=== PATIENT | male | born 1955 | race Caucasian/White ===

== ENCOUNTER → 2018-04-22 10:20 | Outpatient (CLI) | payer MEDICARE, SELFPAY ==
--- NOTE | 2018-04-22 10:25 | US_ITS ---
STUDY: RENAL ULTRASOUND - COMPLETE REASON FOR EXAM: Male, 62 years old. Stage III kidney disease. History of surgery inferior pole left kidney. TECHNIQUE: Ultrasound evaluation of the kidneys was performed with real-time and static dupree-scale imaging. COMPARISON: CT abdomen with runoff May 19, 2015. FINDINGS: RIGHT KIDNEY: Normal location of the right kidney, which is normal in size. The right kidney measures 12.0 x 5.6 x 6.1 cm. There is a normal cortex of the right kidney. The renal cortex measures 1.6 cm. There is no right renal mass or cyst. There are no right renal calculi. There is no right hydronephrosis. DISTAL RIGHT URETER: There is non-visualization of the distal right ureter. There is no demonstrated right ureterovesical junction calculus. There is a visualized right ureteral jet. LEFT KIDNEY: Normal location of the left kidney, which is normal in size. The left kidney measures 9.8 x 5.5 x 6.2 cm. There is a normal cortex of the left kidney. The renal cortex measures 1.6 cm. Simple cyst superior pole measuring 1.2 x 1.1 x 1.0 cm. Superior pole of the left kidney not included on the prior study. 3 mm renal calculus. There is no left hydronephrosis. DISTAL LEFT URETER: There is non-visualization of the distal left ureter. There is no demonstrated left ureterovesical junction calculus. There is a visualized left ureteral jet. I.V.C.: The IVC is patent. BLADDER: The distended urinary bladder has a volume of 208 ml. The empty urinary bladder has a volume of 20 ml. There is a normal wall thickness of the distended urinary bladder. There is no demonstrated mass within the urinary bladder. There are no demonstrated bladder calculi. US/Kidney and Bladder IMPRESSION: No hydronephrosis. Simple cyst left kidney. 3 mm nonobstructing calculus left kidney. No significant postvoid bladder residual. Electronically Signed: Sam Gan MD at 4:46 EDT , Service support ,
[2018-04-22 11:15] LABS: Bacteria 0 SEEN /hpf (None Seen); Mucous, Urine 0 SEEN /hpf (<or=2+); Red Blood Cells-Urine 0 SEEN /hpf (0-5); Squamous Epithelial Cells - UA 0 SEEN /hpf (0-5); White Blood Cells 0 SEEN /hpf (0-5)
[2018-04-22 11:39] LABS: Hematocrit 45.9 % (40-54); Hemoglobin 14.8 g/dl (13.0-16.5); Mean Corp Hgb Conc 32.2 g/gl (32-36); Mean Corpuscular Hgb 30.7 pg (27.0-32.0); Mean Corpuscular Volume 95.2 fL (80-94); Mean Platelet Vol. 10.4 fl (6.2-12.0); Platelet Count 262 K/mm3 (150-450); RBC Distribution Width SD 48.9 fl (35.1-43.9); Red Blood Count 4.82 M/mm3 (4.6-6.2); White Blood Count 7.2 K/mm3 (4.4-11.0)
[2018-04-22 11:46] LABS: Scan Indicated on CBC? Y/N NO
[2018-04-22 12:07] LABS: Albumin, Serum 3.8 g/dL (3.2-5.0); BUN 20 mg/dL (7-18); BUN/Creat Ratio 13.2 RATIO (10-20); Calcium,Total 8.8 mg/dL (8.5-10.1); Chloride 103 mmol/L (98-107); Creatinine, Serum 1.51 mg/dL (0.70-1.30); EST Glomerular Filtration Rate 50 mL/min (>60); Est Glom Filt Rate - Afr Amer 60 mL/min (>60); Glucose 91 mg/dL (74-106); Phosphorus 2.3 mg/dL (2.5-4.9); Potassium 4.3 mmol/L (3.5-5.1); Sodium Level 138 mmol/L (136-145)
[2018-04-22 12:35] LABS: Color, Urine Yellow (Yellow); Glucose, Dipstick Normal (Normal); Ketone-Dipstick Negative (Negative); Leukocyte Esterase-Dipstick Negative /ul (Negative); Nitrite-Dipstick Negative (Negative); Occult Blood-Urine Negative /ul (Negative); Protein-Dipstick Negative (Negative); Urine Bilirubin Dipstick Negative (Negative); Urine Clarity Clear (Clear); Urine Urobilinogen Normal (Normal)
[2018-04-22 14:04] LABS: Microalbumin,Random Urine 9.3 mg/L (NO RANGE EST.); Microalbumin:Creatinine Ratio 30.6 mg/g CRE (<30 mg/g CRE); Protein, Urine (Random) < 6.0 mg/dL (<11.9)
[2018-04-23 08:30] LABS: Vitamin D,25 Hydroxy 25.3 ng/mL (29.95-100.01)
[2018-04-23 08:33] LABS: PTHIN 32.1 pg/mL (18.4-80.1)
== END ==
PROVIDERS: Family Provider Family Medicine; PCP Family Medicine; Visit Provider Internal Medicine Nephrology
DX: N18.3 Chronic kidney disease, stage 3 (moderate) (principal); E55.9 Vitamin D deficiency, unspecified
CPT/HCPCS: 36415; 76770; 80069; 81001; 82043; 82306; 82570; 83970; 84156; 85027

== ENCOUNTER → 2018-09-29 10:17 | Outpatient (CLI) | payer MEDICARE, SELFPAY ==
[2018-09-29 13:10] LABS: International Normalized Ratio 2.6; Prothrombin Time (Protime)PT. 28.3 SECONDS (11.7-14.9)
== END ==
PROVIDERS: Family Provider Family Medicine; PCP Family Medicine; Referring Provider Family Medicine; Visit Provider Family Medicine
DX: I73.9 Peripheral vascular disease, unspecified (principal); Z79.01 Long term (current) use of anticoagulants
CPT/HCPCS: 85610

== ENCOUNTER → 2018-11-27 10:55 | Outpatient (CLI) | payer MEDICARE, SELFPAY ==
[2018-11-27 11:56] LABS: Hematocrit 43.5 % (40-54); Mean Corp Hgb Conc 32.2 g/gl (32-36); Mean Corpuscular Hgb 31.3 pg (27.0-32.0); Mean Corpuscular Volume 97.3 fL (80-94); Mean Platelet Vol. 11.3 fl (6.2-12.0); Platelet Count 268 K/mm3 (150-450); RBC Distribution Width CV 13.7 % (11.6-14.6); RBC Distribution Width SD 47.3 fl (35.1-43.9); Red Blood Count 4.47 M/mm3 (4.6-6.2); White Blood Count 7.9 K/mm3 (4.4-11.0)
[2018-11-27 11:58] LABS: Color, Urine Straw (Yellow); Glucose, Dipstick Normal (Normal); Ketone-Dipstick Negative (Negative); Leukocyte Esterase-Dipstick Negative /ul (Negative); Nitrite-Dipstick Negative (Negative); Occult Blood-Urine Negative /ul (Negative); Protein-Dipstick Negative (Negative); Specific Gravity, Urine 1.005 (1.002-1.030); Urine Bilirubin Dipstick Negative (Negative); Urine Clarity Clear (Clear); Urine Urobilinogen Normal (Normal)
[2018-11-27 12:12] LABS: Scan Indicated on CBC? Y/N NO
[2018-11-27 12:24] LABS: Microalbumin,Random Urine 11.6 mg/L (NO RANGE EST.); Microalbumin:Creatinine Ratio 31.3 mg/g CRE (<30 mg/g CRE); Protein, Urine (Random) < 6.0 mg/dL (<11.9)
[2018-11-27 12:35] LABS: Vitamin D,25 Hydroxy 22.2 ng/mL (29.95-100.01)
[2018-11-27 12:39] LABS: Albumin, Serum 3.8 g/dL (3.2-5.0); BUN 13 mg/dL (7-18); BUN/Creat Ratio 8.9 RATIO (10-20); Calcium,Total 8.9 mg/dL (8.5-10.1); Chloride 105 mmol/L (98-107); Creatinine, Serum 1.46 mg/dL (0.70-1.30); EST Glomerular Filtration Rate 52 mL/min (>60); Est Glom Filt Rate - Afr Amer 63 mL/min (>60); Glucose 83 mg/dL (74-106); Phosphorus 2.2 mg/dL (2.5-4.9); Potassium 4.3 mmol/L (3.5-5.1); Sodium Level 140 mmol/L (136-145)
[2018-11-27 12:55] LABS: PTHIN 53.5 pg/mL (18.4-80.1)
== END ==
PROVIDERS: Family Provider Family Medicine; PCP Family Medicine; Referring Provider Internal Medicine Nephrology; Visit Provider Internal Medicine Nephrology
DX: N18.3 Chronic kidney disease, stage 3 (moderate) (principal); E55.9 Vitamin D deficiency, unspecified
CPT/HCPCS: 36415; 80069; 81002; 82043; 82306; 82570; 83970; 84156; 85027

== ENCOUNTER → 2019-07-10 09:44 | Outpatient (CLI) | payer MEDICARE, SELFPAY ==
[2017-04-29 12:08] VITALS: BMI 32.3
[2019-07-10 10:19] LABS: International Normalized Ratio 2.7; Prothrombin Time (Protime)PT. 28.8 SECONDS (11.7-14.9)
== END ==
PROVIDERS: Family Provider Family Medicine; PCP Family Medicine; Referring Provider Family Medicine; Visit Provider Family Medicine
DX: Z79.01 Long term (current) use of anticoagulants (principal); Z86.718 Personal history of other venous thrombosis and embolism
CPT/HCPCS: 85610

== ENCOUNTER → 2020-05-04 | Outpatient (CLI) | payer MEDICARE, SELFPAY ==
[2017-04-29 12:08] VITALS: BMI 32.3
[2020-05-04 14:35] LABS: Prothrombin Time (Protime)PT. 30.8 SECONDS (11.7-14.9)
== END | disposition home or self-care (01) ==
LOC: LABSPEC 13:49
PROVIDERS: PCP Family Medicine; Referring Provider Family Medicine; Visit Provider Family Medicine
DX: I73.9 Peripheral vascular disease, unspecified (principal); Z86.718 Personal history of other venous thrombosis and embolism
CPT/HCPCS: 85610

== ENCOUNTER → 2020-07-13 | Outpatient (CLI) | payer MEDICARE, SELFPAY ==
[2017-04-29 12:08] VITALS: BMI 32.3
[2020-07-13 11:38] LABS: International Normalized Ratio 2.5; Prothrombin Time (Protime)PT. 26.7 SECONDS (11.7-14.9)
== END | disposition home or self-care (01) ==
PROVIDERS: PCP Family Medicine; Referring Provider Family Medicine; Visit Provider Family Medicine
DX: I73.9 Peripheral vascular disease, unspecified (principal); Z86.718 Personal history of other venous thrombosis and embolism
CPT/HCPCS: 85610

== ENCOUNTER → 2020-09-07 | Outpatient (CLI) | payer MEDICARE, SELFPAY ==
[2017-04-29 12:08] VITALS: BMI 32.3
[2020-09-07 11:07] LABS: International Normalized Ratio 2.1; Prothrombin Time (Protime)PT. 22.9 SECONDS (11.7-14.9)
== END | disposition home or self-care (01) ==
LOC: LABSPEC 10:52
PROVIDERS: PCP Family Medicine; Referring Provider Family Medicine; Visit Provider Family Medicine
DX: I73.9 Peripheral vascular disease, unspecified (principal); Z86.718 Personal history of other venous thrombosis and embolism
CPT/HCPCS: 85610

== ENCOUNTER → 2020-10-21 | Outpatient (CLI) | payer MEDICARE, SELFPAY ==
[2017-04-29 12:08] VITALS: BMI 32.3
[2020-10-21 10:10] LABS: International Normalized Ratio 2.6; Prothrombin Time (Protime)PT. 27.2 SECONDS (11.7-14.9)
== END | disposition home or self-care (01) ==
LOC: LABSPEC 09:37
PROVIDERS: PCP Family Medicine; Visit Provider Family Medicine
DX: I73.9 Peripheral vascular disease, unspecified (principal); Z86.718 Personal history of other venous thrombosis and embolism
CPT/HCPCS: 85610

== ENCOUNTER → 2020-12-16 | Outpatient (CLI) | payer MEDICARE, SELFPAY ==
[2017-04-29 12:08] VITALS: BMI 32.3
[2020-12-16 16:09] LABS: International Normalized Ratio 1.8; Prothrombin Time (Protime)PT. 20.5 SECONDS (11.7-14.9)
== END | disposition home or self-care (01) ==
LOC: LABSPEC 15:00
PROVIDERS: PCP Family Medicine; Visit Provider Physician Assistant
DX: I73.9 Peripheral vascular disease, unspecified (principal); Z86.718 Personal history of other venous thrombosis and embolism
CPT/HCPCS: 85610

== ENCOUNTER 2022-03-08 09:16 | Outpatient (CLI) | payer MEDICARE, SELFPAY ==
[2022-03-08 09:42] LABS: International Normalized Ratio 2.3; Prothrombin Time (Protime)PT. 24.8 SECONDS (11.7-14.9)
== END 2022-03-08 23:59 | disposition home or self-care (01) ==
LOC: LABSPEC 09:17
PROVIDERS: PCP Family Medicine; Visit Provider Family Medicine
DX: I73.9 Peripheral vascular disease, unspecified (principal); Z86.718 Personal history of other venous thrombosis and embolism
CPT/HCPCS: 85610

== ENCOUNTER → 2022-04-13 | Outpatient (CLI) | payer MEDICARE, SELFPAY ==
[2022-04-13 14:19] LABS: International Normalized Ratio 2.7; Prothrombin Time (Protime)PT. 28.3 SECONDS (11.7-14.9)
== END | disposition home or self-care (01) ==
LOC: LABSPEC 14:01
PROVIDERS: PCP Family Medicine; Referring Provider Family Medicine; Visit Provider Family Medicine
DX: Z86.718 Personal history of other venous thrombosis and embolism (principal)
CPT/HCPCS: 85610

== ENCOUNTER → 2022-05-14 | Outpatient (CLI) | payer MEDICARE, SELFPAY ==
--- NOTE | 2022-05-14 | FLU_PTH ---
PATIENT: MATT MENDOZA LOC: [facility] U#:[id number] AGE/SX: 66/M ROOM: RE05/14/[address]: Dr. Isabel Hoskins MD : 1955 BED: DIS: 05/14/2022 SPEC #: [id number] RECD: 05/14/22 11:04 STATUS: ADÁN STEFFANY #: [id number] KATLYN: 05/14/22 00:[address]: Isabel Hoskins DEPT: CYTOLOGY RECD BY: Reanna Caro ENTERED: 05/14/22 12:15 SP TYPE: Fluid OTHR DR: Dr. Marcus Andrews MD Tissues: A - Thyroid gland, NOS B - Thyroid gland, NOS C - Thyroid gland, NOS D - Thyroid gland, NOS Procedures: Special Stain Group II Surgery Specimen Level IV Cytospin Fluid Cytology Other HEADER OPERATION: Fine needle aspiration, right and left thyroid PRE-OP DIAGNOSIS: Thyroid nodules TISSUE SUBMITTED: A - Right thyroid nodule fluid, B - Right thyroid nodule x10 slides, C - Left thyroid nodule fluid, D - Left thyroid nodule x8 slides DIAGNOSIS CYTOLOGY A. Right thyroid nodule fluid, fine needle aspiration (cytospin and cell block): Consistent with benign follicular/colloid nodule ([place] category II). Adequate for evaluation. B. Right thyroid nodule, fine needle aspiration (smears): Consistent with benign follicular/colloid nodule ([place] category II). Adequate for evaluation. C. Left thyroid nodule fluid, fine needle aspiration (cytospin and cell block): Consistent with benign follicular/colloid nodule ([place] category II). Adequate for evaluation. D. Left thyroid nodule, fine needle aspiration (smears): Consistent with benign follicular/colloid nodule with focal cystic changes ([place] category II). Adequate for evaluation. SJ:dread 05/15/2022 COMMENT Correlation with clinical, radiologic findings and appropriate follow up are necessary. CYTOLOGY STUDY Slides are reviewed. CYTOLOGY GROSS A - Received is 15 ml of red cloudy fluid labeled with the patient's name and and designated per the requisition as right thyroid nodule. Submitted for cytology preparation including cell block. B - Received are ten smears labeled with the patient's name and designated per the requisition as right thyroid nodule. Submitted for staining. C - Received is 15 ml of red cloudy fluid labeled with the patient's name and and designated per the requisition as left thyroid nodule. Submitted for cytology preparation including cell block. D - Received are eight smears labeled with the patient's name and designated per the requisition as left thyroid nodule. Submitted for staining. / dread 05/14/2022 TC:5 CPT: 25007 x4, 88016 x2
== END | disposition home or self-care (01) ==
LOC: LABSPEC 12:05
PROVIDERS: PCP Family Medicine; Visit Provider Surgery
DX: E04.1 Nontoxic single thyroid nodule (principal)
CPT/HCPCS: 88108; 88161; 88305; 88313